=== PATIENT | male | born 1950 | race Caucasian/White ===

== ENCOUNTER 2017-07-16 11:55 | Emergency (ER) | payer BC, MEDICARE ==
--- OUTSIDE RECORDS SUMMARY | 2017-07-16 14:01 | XMS REPORT ---
:1950 External Reference #:[id number] Author Organization [facility] Address [address] [address] Phone [phone] Care Team Providers Name Role Phone Ronald Burk MD Primary Care Physician Unavailable Payers Type Date Identification Numbers Payment Provider Subscriber Health Maintenance Policy Number: Medicare Blue o Jean-Claude Bernal [facility] (O) [id number] PayID: [id number] [address] [place] [address] Medigap Part B Effective: 05/31/2011 Policy Number: SHUKRI Devonte eBrnal [id number] Expires: 05/30/2017 PayID: [id number] [address] [place] [address] Medigap Part B Expires: 05/30/2011 Policy Number: CandeSandra Qureshi Bernal [id number] Group Number: [id number] [address] PayID: [id number] [place] [address] Workers Onset: 05/23/2014 Policy Number: State Insurance Jean-Claude Compensation [id number] Bev Bernal Group Number: [id number] [address] [address] Group Name: [phone] [place] [address] [place]: [id number] Med[place] Part B Effective: 08/28/2015 Policy Number: Medicare Bradley Bernal [id number] Expires: 09/28/2015 Group Name: Part A Only Now [address] PayID: [id number] ALICIA [place] [id number] Problems Description No Information Family History Date Family Member(s) Problem(s) Comments General No Current Problems Father Hypercholesterolemia Father Hypertension Father Heart Disease Father Glaucoma Father [place] Mother Hypertension Social History Type Date Description Comments Marital Status Lives With spouse Occupation department director Cigarette Use Never Smoked Cigarettes ETOH Use Currently consumes alcohol Smoking Patient has never smoked Recreational Drug Use Denies Drug Use Daily Caffeine Does Not Consume Caffeine Daily Caffeine consumes chocolate occasionally Exercise Type/Frequency Does not exercise Allergies, Adverse Reactions, Alerts Date Description Reaction Status Severity Comments 11/16/2013 Compazine active 11/16/2013 Keflex active 10/09/2015 Nuts active Severe 10/21/2015 Love Kernals active Medications Medication Date Status Form Strength Qnty SIG Indications Ordering Provider Singulair Active 10mg once Unknown /0000 daily Cialis Active 5mg as Unknown /0000 directed Hydrochlorothiazide Active Caps 25mg one Unknown /0000 capsule every other day Xyzal Active Tablets 5mg 1 by Unknown /0000 mouth every day Diazepam Active Tablets 5mg as Unknown /0000 directed (almost never takes) Ibuprofen Active Capsules 200mg 200-600 Unknown /0000 mg as needed Hydrocodone-Acetamin 05/25 Hx Tablets 5-325mg 90tab 1-2 by Devaughn hameed /2013 s mouth Leticia, - every 4-6 M.D. prn, use less and less of this as able Oxycodone-Acetaminop 11/16 Hx Tablets 5-325mg 40tab 1-2 tab Terry s by mouth Ty, - at M.D. 01/15 bedtime as needed for pain Allergy Medication 00 Hx Unknown /0000 - 10/08 Omeprazole 00 Hx 40mg once Unknown /0000 daily - 10/21 Uroxatral Hx Tablets 10mg take 1 Unknown /0000 ER 24HR tablet by - mouth one 07/05 daily Gabapentin Hx Capsules 300mg 1 by Unknown /0000 mouth - three 08/20 times day Cromolyn Sodium Hx Aerosol 5.2mg/Act 1 spray Unknown /0000 both eyes - nares 10/21 times a day as needed Medications Administered in Office Medication Date Status Form Strength Qnty SIG Indications Ordering Provider Technetium TC Administered Injection Wesley S. 99M 016 DO [place] Tetrofosmin, FACC Per Unit Dose Up To 40 Millicuries Depomedrol Administered Injection Dirk Leticia, 40MG 016 M.D. Depomedrol Administered Injection Cari 80MG 015 Liptak, RPA-C Depomedrol Administered Injection Sondra 80MG 014 Edward, ANP-C Depomedrol Administered Injection Sanchez, Lien, 40MG 010 PA Vital Signs Date Vital Result Comment 07/06/2017 Height 72 inches 6'0" Weight 215.00 lb No shoes Heart Rate 62 /min BP Systolic Sitting 142 mmHg Rue lrg cuff BP Diastolic Sitting 90 mmHg Rue lrg cuff BP Systolic Standing 148 mmHg Rue lrg cuff BP Diastolic Standing 98 mmHg Rue lrg cuff Respiratory Rate 17 /min BMI (Body Mass Index) 29.2 kg/m2 Ejection Fraction 60-65% 11/11/2015-echo 10/21/2015 Height 72 inches 6'0" Weight 215.00 lb w/ shoes Heart Rate 64 /min reg BP Systolic 114 mmHg Rue, lg cuff BP Diastolic 80 mmHg Rue, lg cuff BP Systolic Sitting 104 mmHg Lue, lg cuff BP Diastolic Sitting 70 mmHg Lue, lg cuff BP Systolic Standing 106 mmHg Lue BP Diastolic Standing 74 mmHg Lue Respiratory Rate 18 /min O2 % BldC Oximetry 96 % on Ra BMI (Body Mass Index) 29.2 kg/m2 Ejection Fraction 60% as of 09/25/08 echo 08/28/2015 Height 72 inches 6'0" Weight 215.00 lb Pain Level 4 BMI (Body Mass Index) 29.2 kg/m2 06/26/2015 Height 72 inches 6'0" Weight 215.00 lb BMI (Body Mass Index) 29.2 kg/m2 2014 Height 72 inches 6'0" Weight 215.00 lb Pain Level 3 BMI (Body Mass Index) 29.2 kg/m2 06/18/2014 Height 72 inches 6'0" Weight 215.00 lb Pain Level 2 BMI (Body Mass Index) 29.2 kg/m2 05/28/2014 Height 72 inches 6'0" Weight 215.00 lb Heart Rate 60 /min BMI (Body Mass Index) 29.2 kg/m2 05/17/2014 Height 72 inches 6'0" Weight 215.00 lb Heart Rate 60 /min BMI (Body Mass Index) 29.2 kg/m2 03/20/2014 Height 72 inches 6'0" Weight 215.00 lb Pain Level 3 BMI (Body Mass Index) 29.2 kg/m2 01/16/2014 Height 72 inches 6'0" Heart Rate 57 /min BP Systolic 134 mmHg BP Diastolic 83 mmHg 11/16/2013 Height 72 inches 6'0" Weight 210.00 lb Heart Rate 61 /min BP Systolic 125 mmHg BP Diastolic 77 mmHg Pain Level 10 BMI (Body Mass Index) 28.5 kg/m2 Results Description No Information Procedures Date CPT Code Description Status 07/06/2017 72736 EKG Tracing & Interpretation Completed 11/11/2015 97850 ECHO Transthoracic, Real-Time 2D With Doppler And Color Completed Flow 10/23/2015 53843 Stress Test Completed 10/23/2015 00407 Myocardial Perfusion Imaging Tomographic (Spect) Completed Multiple Studies 10/21/2015 52726 EKG Tracing & Interpretation Completed 06/26/2015 55730 Inject/Drain Joint/Bursa Major Completed 2014 68557 Inject/Drain Joint/Bursa Major Completed 2014 10395 Inject/Drain Joint/Bursa Major Completed 06/18/2014 60663 Rad Exam; Knee, Ap&L Completed 06/18/2014 43694 Rad Exam; Knee, Ap&L Completed 05/28/2014 09000 Inject/Drain Joint/Bursa Major Completed 05/28/2014 50325 Inject/Drain Joint/Bursa Major Completed 07/17/2009 42682 Rad Exam; Knee Comp Completed 07/17/2009 71168 Rad Exam; Knee, Ap&L Completed 07/17/2009 11472 Inject/Drain Joint/Bursa Major Completed Encounters Type Date Location Provider CPT E/M Dx Office Visit 10/21/2015 [facility] [place] [address] R94.31 3:00p [facility] E83.110 Z01.810 R55 Office Visit 06/26/2015 10:45a [facility] M.D. 70626 M17.11 C.M.A. Office Visit 2014 10:30a [facility] [place]tt, [address] 715.96 C.M.A. RPA-C 715.96 Office Visit 06/18/2014 3:00p [facility] M.D. 35077 716.96 C.M.A. 844.9 Office Visit 05/28/2014 1:00p [facility]ra Leon, 815[address] 836.0 C.M.A. ANP-C 719.46 719.46 719.06 719.06 715.96 715.96 Office Visit 05/17/2014 3:30p [facility] M.D. 55481 840.4 C.M.A. Office Visit 03/20/2014 8:00a [facility] M.D. 83809 840.4 C.M.A. Office Visit 01/16/2014 11:00a [facility] M.D. 01250 840.4 C.M.A. Office Visit 11/16/2013 10:15a [facility] M.D. 00906 840.4 C.M.A. Office Visit 07/17/2009 11:15[place] [facility] [place] [address] 716.96 C.M.A. 844.9 Plan of Care 07/06/2017 - Wesley Chilel DO FACCR00.2 PalpitationsNew Orders:Event MonitorFollow up:PRN
[2017-07-16 14:07] VITALS: BP 112/84
[2017-07-16] MEDS ORDERED: Albuterol 2.5 MG/3 ML NEB.SOL* (0.083%) INH ONE (14:20)
[2017-07-16] MEDS ORDERED: Ipratropium 0.5MG/2.5ML NEB* 0.5 MG/2.5 ML NEB.SOLN INH ONE (14:20)
--- NOTE | 2017-07-16 14:43 | UC ---
Respiratory Complaint HPI - HPI Summary HPI Summary: 66 yo male with a 10 day hx of cough/wheezing/sinus pressure and pain Has had 2 similar episodes in past 5 months Seen at [place] and in [place] Had CXR reported as negative rxed for bronchitis with MDI/prednisone and abx both times long hx bronchitis - History of Current Complaint Chief Complaint: UCRespiratory Stated Complaint: RESPIRATORY Time Seen by Provider: 07/16/17 14:14 Hx Obtained From: Patient Onset/Duration: Gradual Onset, Lasting Days - 10 Timing: Constant Severity Initially: Moderate Severity Currently: Moderate Pain Intensity: 4 Pain Scale Used: 0-10 Numeric Character: Cough: Nonproductive Aggravating Factors: Deep Breaths Associated Signs And Symptoms: Positive: Dyspnea, Wheezing, Nasal Congestion, Hoarseness, Sinus Discomfort - Allergies/Home Medications Allergies/Adverse Reactions: Allergies Allergy/AdvReac Type Severity Reaction Status Date / Time MS Cephalexin [From Keflex] Allergy Rash Verified 07/16/17 14:07 MS Prochlorperazine Allergy See Comment Verified 07/16/17 14:07 [From Compazine] sunflower Allergy Anaphylatic Uncoded 07/16/17 14:07 Shock Home Medications: Home Medications Tamsulosin HCl [Flomax] 0.4 mg PO 07/16/17 [History] PMH/Surg Hx/FS Hx/Imm Hx Previously Healthy: Yes Respiratory History: Bronchitis - Surgical History Surgical History: Yes Surgery Procedure, Year, and Place: Abena Fundoplication 1995; right meniscus trimme/repaired X 2,RHINOPLASTY/PREV ORBITAL FX OK'D PREVIOUSLY WITH SKULL AND CT MAXILLOFACIAL STUDIES. CSP FORAMINOTOMY 03/21/14. RT TOTAL KNEE - Family History Known Family History: Positive: Cardiac Disease - Social History Alcohol Use: Occasionally Alcohol Amount: 1-2 times per week Substance Use Type: None Smoking Status (MU): Never Smoked Tobacco Have You Smoked in the Last Year: No - Immunization History Most Recent Tetanus Shot: 03/2013 Review of Systems Constitutional: Negative Skin: Negative Eyes: Negative ENT: Ear Ache, Nasal Discharge, Sinus Congestion, Sinus Pain/Tenderness Respiratory: Shortness Of Breath, Cough Cardiovascular: Negative Gastrointestinal: Negative Genitourinary: Negative Motor: Negative Neurovascular: Negative Musculoskeletal: Negative Neurological: Negative Psychological: Negative Is Patient Immunocompromised?: No All Other Systems Reviewed And Are Negative: Yes Physical Exam Triage Information Reviewed: Yes Appearance: Well-Appearing, No Pain Distress, Well-Nourished Vital Signs: Initial Vital Signs Temp 98.5 F 07/16/17 14:04 Pulse 90 07/16/17 14:04 Resp 18 07/16/17 14:04 BP 112/84 07/16/17 14:04 Pulse Ox 100 07/16/17 14:04 Vital Signs Reviewed: Yes Eyes: Positive: Conjunctiva Clear ENT: Positive: Hearing grossly normal, Nasal congestion, TMs normal, Hoarse voice, Sinus tenderness, Uvula midline. Negative: Tonsillar swelling, Tonsillar exudate, Trismus, Muffled voice Neck: Positive: Supple, Nontender, No Lymphadenopathy Respiratory: Positive: No respiratory distress, No accessory muscle use, Wheezing Cardiovascular: Positive: RRR, No Murmur Musculoskeletal: Positive: ROM Intact, No Edema Neurological: Positive: Alert Psychological Exam: Normal Skin Exam: Normal UC Diagnostic Evaluation - Laboratory O2 Sat by Pulse Oximetry: 100 - normal/not hypoxic - Radiology Xray Interpretation: No Acute Changes Radiology Interpretation Completed By: Radiologist Re-Evaluation - Re-Evaluation First Eval Re-Evaluation Time: 15:02 Change: Improved - better air movement and decreased wheeze, left base sounds the worse Respiratory Course/Dx - Differential Dx/Diagnosis Provider Diagnoses: acute bronchitis. acute sinusitis Discharge - Discharge Plan Condition: Stable Disposition: HOME Prescriptions: DOXYcycline CAP(*) [DOXYcycline 100MG CAP(*)] 100 mg PO BID #20 cap predniSONE [Deltasone] 40 mg PO DAILY #10 tab Patient Education Materials: Sinusitis (ED), Acute Bronchitis (ED) Referrals: Thiago Valverde MD [Primary Care Provider] - 2 Weeks Additional Instructions: DON'T take your CALCIUM within two hours of your DOXYCYCLINE. (You can take it 2 hours before or 2 hours after) use your albuterol inhaler 2 puffs 4x day for 7 days
--- NOTE | 2017-07-16 15:35 | RAD ---
HISTORY: Cough COMPARISONS: October 06, 2015 VIEWS: 4: Frontal dual-energy and lateral views of the chest. FINDINGS: CARDIOMEDIASTINAL SILHOUETTE: The cardiomediastinal silhouette is normal. PETER: The peter are normal. PLEURA: The costophrenic angles are sharp. No pleural abnormalities are noted. LUNG PARENCHYMA: The lungs are clear. ABDOMEN: The upper abdomen is clear. There is no subphrenic gas. BONES AND SOFT TISSUES: Mild degenerative changes are noted. OTHER: None. IMPRESSION: NO ACTIVE CARDIOPULMONARY DISEASE.
[2017-07-16] MEDS ORDERED: predniSONE TAB* 20 MG PO ONE (15:40)
== END 2017-07-16 15:49 | disposition home or self-care (01) ==
LOC: UCCORT 11:55
DX: J20.9 Acute bronchitis, unspecified (principal); J01.90 Acute sinusitis, unspecified
CPT/HCPCS: 71046; 99212; G0463; J7512; J7644

== ENCOUNTER 2017-11-21 19:32 | Emergency (ER) | payer BC, MEDICARE ==
[2017-11-21 19:55] VITALS: BP 126/77
[2017-11-21] MEDS ORDERED: predniSONE TAB* 20 MG PO ONE (20:16)
--- NOTE | 2017-11-21 20:18 | UC ---
Respiratory Complaint HPI - HPI Summary HPI Summary: patient states he has had cough for the past 30 hours with tightness but no wheezing. He has history of cough variant asthma for years with seldom episodes for since February, he has had four, requiring prednisone to suppress symptoms. He doesn't find that the albuterol inhaler is of much help. Denies chills, fever , nausea, palpitations or chest pain. Has occasional symptoms of allergic rhinitis. - History of Current Complaint Chief Complaint: UCGeneralIllness Stated Complaint: COUGH/HEADACHE/SINUS Time Seen by Provider: 11/21/17 19:54 Hx Obtained From: Patient Onset/Duration: Sudden Onset, Lasting Hours Timing: Constant Severity Initially: Mild Severity Currently: Moderate Pain Intensity: 3 Character: Cough: Nonproductive Aggravating Factors: Allergens, Deep Breaths Alleviating Factors: Nothing Associated Signs And Symptoms: Positive: Negative Related History: Seasonal Allergies - Risk Factors Pulmonary Embolism Risk Factors: Negative Cardiac Risk Factors: Negative Pseudomonas Risk Factors: Negative Tuberculosis Risk Factors: Negative - Allergies/Home Medications Allergies/Adverse Reactions: Allergies Allergy/AdvReac Type Severity Reaction Status Date / Time cephalexin Allergy Rash Verified 11/21/17 19:46 prochlorperazine Allergy Leg Cramps Verified 11/21/17 19:46 [From Compazine] sunflower Allergy Anaphylatic Uncoded 11/21/17 19:46 Shock Home Medications: Home Medications D-Methorphan/PE/Acetaminophen [Daytime Cold-Flu Softgel] 2 each PO ONCE PRN [History Confirmed 11/21/17] PMH/Surg Hx/FS Hx/Imm Hx Cardiovascular History: Hypertension Respiratory History: Asthma - Surgical History Surgical History: Yes Surgery Procedure, Year, and Place: Abena Fundoplication 1995; right meniscus trimme/repaired X 2,RHINOPLASTY/PREV ORBITAL FX OK'D PREVIOUSLY WITH SKULL AND CT MAXILLOFACIAL STUDIES. CSP FORAMINOTOMY 03/21/14. RT TOTAL KNEE - Family History Known Family History: Positive: Cardiac Disease - Social History Alcohol Use: Occasionally Alcohol Amount: 1-2 times per week Substance Use Type: None Smoking Status (MU): Never Smoked Tobacco Have You Smoked in the Last Year: No - Immunization History Most Recent Tetanus Shot: 03/2013 Review of Systems Respiratory: Shortness Of Breath, Cough All Other Systems Reviewed And Are Negative: Yes Physical Exam Triage Information Reviewed: Yes Appearance: Well-Appearing, No Pain Distress, Well-Nourished Vital Signs: Initial Vital Signs Temp 98.1 F 11/21/17 19:50 Pulse 59 11/21/17 19:50 Resp 14 11/21/17 19:50 BP 126/77 11/21/17 19:50 Pulse Ox 100 11/21/17 19:50 Vital Signs Reviewed: Yes Eyes: Positive: Conjunctiva Clear ENT: Positive: Pharynx normal, TMs normal, Uvula midline Neck: Positive: Supple, Nontender, No Lymphadenopathy Respiratory: Positive: Chest non-tender, Lungs clear, Normal breath sounds Cardiovascular: Positive: RRR, No Murmur, Pulses Normal, Brisk Capillary Refill Abdomen Description: Positive: Nontender, No Organomegaly, Soft Bowel Sounds: Positive: Present UC Diagnostic Evaluation - Laboratory O2 Sat by Pulse Oximetry: 100 Respiratory Course/Dx - Course Course Of Treatment: patient with recurrence of cough variant asthma, discussed rescue treatment with oral prednisone and early intervention with flovent diskus at the beginning of any symptoms, rinsing after each inhalation. Avoid allergens. f/u with PCP - Differential Dx/Diagnosis Provider Diagnoses: cough variant asthma Discharge - Sign-Out/Discharge Documenting (check all that apply): Discharge/Admit/Transfer - Discharge Plan Condition: Stable Disposition: HOME Prescriptions: Fluticasone DISKUS 250 MCG(NF) [Flovent Diskus 250 MCG(NF)] 1 puff INH BID 10 Days #1 diskus predniSONE TAB* [Deltasone TAB*] 50 mg PO DAILY 3 Days #3 tab Patient Education Materials: Asthma (ED), Fluticasone (By breathing), Prednisone (By mouth) Referrals: Thiago Valverde MD [Primary Care Provider] - - Billing Disposition and Condition Condition: STABLE Disposition: Home
== END 2017-11-21 20:24 | disposition home or self-care (01) ==
LOC: UCCORT 19:32
DX: R05 Cough (principal); J45.909 Unspecified asthma, uncomplicated; Z88.1 Allergy status to other antibiotic agents; Z88.8 Allergy status to other drugs, medicaments and biological substances; I10 Essential (primary) hypertension
CPT/HCPCS: 99212; G0463; J7512